=== PATIENT | female | born 1960 | race Caucasian/White ===

== ENCOUNTER 2021-12-05 02:35 | Inpatient (IN) ==
[~2021-12-05 02:35] MED LIST: HYDROmorphone 1 MG/1 ML SYRINGE ONE; KETOROLAC 30 MG/1 ML VIAL ONE; ONDANSETRON 4 MG/2 ML VIAL ONE; PANTOPRAZOLE 40 MG VIAL IV ONE; methylPREDNISolone SOD SUC 125 MG/2 ML VIAL ONE
[2021-12-05 03:32] LABS: Bilirubin,Total 0.5 MG/DL (0.20-1.00); Calcium 9.5 MG/DL (8.5-10.1); Osmolality,Calculated 275.7 MOS/KG (273-304); Potassium 3.4 MMOL/L (3.5-5.1); Total Protein 7.6 G/DL (6.4-8.2)
[2021-12-05] MEDS ORDERED: PIPERACILLIN/TAZOBACTAM 3,375 MG in SODIUM CHLORIDE 0.9% 100 ML IV STA (03:36)
[2021-12-05 03:45] LABS: Bilirubin,Urine Negative (Negative); Blood, Urine Trace mg/dL (Negative); Glucose,Urine (UA) Negative (Negative); Ketones,Urine Negative (Negative); Nitrite,Urine Positive (Negative); Protein,Urine Negative (Negative); RBC,Urine 2 /HPF (0-4); Squamous Epithelial Cell,Urine Occasional /HPF (0-10); Urine Appearance Clear (Clear); Urine Color Yellow (Yellow); Urine Urobilinogen 0.2 eU/dL (<2.0)
[2021-12-05 03:46] LABS: Hematocrit 47.6 VOL% (35.7-47.0); Hemoglobin 15.1 GM/DL (12.0-16.0); Mean Corpuscular HGB Conc 31.7 GM/DL (32-36); Mean Corpuscular Volume 89.1 FL (87-102); Mucus,Urine Few /LPF (Occasional); Red Blood Count 5.34 MC/CUMM (3.8-5.5); Red Cell Distribution Width 13.2 % (9.3-17.3)
[2021-12-05 03:47] LABS: Basophils # 0.1 10*3/uL (0.0-0.2); Basophils % 0.6 % (0.0-0.8); Eosinophils # 0.2 10*3/uL (0.0-0.87); Eosinophils % 1.8 % (0.00-10.9); Immature Granulocytes % 0.3 %; Immature Granulocytes Absolute 0.03 #; Lymphocytes # 2.6 10*3/uL (1.4-4.0); Lymphocytes % 25.8 % (21.3-54.2); Monocytes # 0.7 10*3/uL (0.11-0.8); Platelet Count 214 T/CUMM (130-400)
[2021-12-05] MEDS: SODIUM CHLORIDE 0.9% 1,000 ML IV SCH ×2 (03:54→14:06)
[2021-12-05] MEDS ORDERED: HYDROmorphone 1 MG/1 ML SYRINGE IV PRN ×2 (04:57→12:41)
[2021-12-05] MEDS ORDERED: ONDANSETRON 4 MG/2 ML VIAL IV PRN ×2 (04:57→12:41)
[2021-12-05] MEDS ORDERED: ALBUTEROL/IPRATROPIUM 3 ML NEB RESP TX PRN (04:58)
[2021-12-05] MEDS ORDERED: MAGNESIUM OXIDE 400 MG TABLET PO PRN (08:33)
[2021-12-05] MEDS: PANTOPRAZOLE 40 MG VIAL IV SCH (08:45)
[2021-12-05] MEDS: PANTOPRAZOLE 40 MG TABLET PO SCH (08:46)
[2021-12-05 09:11] LABS: Basophils % 0.3 % (0.0-0.8); Eosinophils % 0.1 % (0.00-10.9); Hematocrit 44.8 VOL% (35.7-47.0); Hemoglobin 14.3 GM/DL (12.0-16.0); Immature Granulocytes % 0.4 %; Immature Granulocytes Absolute 0.04 #; Lymphocytes # 0.9 10*3/uL (1.4-4.0); Lymphocytes % 9.2 % (21.3-54.2); Mean Corpuscular HGB Conc 31.9 GM/DL (32-36); Mean Platelet Volume 10.7 FL (9.6-12.0); Monocytes # 0.1 10*3/uL (0.11-0.8); Monocytes % 0.9 % (1.7-12.7); Neutrophils % 89.1 % (38.7-73.9); Platelet Count 207 T/CUMM (130-400); Red Blood Count 5.09 MC/CUMM (3.8-5.5); Red Cell Distribution Width 13.1 % (9.3-17.3); White Blood Count 9.7 T/CUMM (4-12)
[2021-12-05] MEDS ORDERED: INDOCYANINE GREEN 25 MG VIAL IV ONE (09:30)
[2021-12-05 09:40] LABS: Albumin 3.6 G/DL (3.4-5.0); Bilirubin,Total 0.5 MG/DL (0.20-1.00); Calcium 9.2 MG/DL (8.5-10.1); Osmolality,Calculated 281.4 MOS/KG (273-304); Potassium 3.7 MMOL/L (3.5-5.1)
[2021-12-05] MEDS ORDERED: LIDOCAINE 2% 5 ML VIAL ONE (09:43)
[2021-12-05] MEDS ORDERED: MIDAZOLAM 2 MG/2 ML VIAL ONE (09:43)
[2021-12-05] MEDS ORDERED: ROCURONIUM 50 MG/5 ML VIAL IV ONE (09:43)
[2021-12-05] MEDS ORDERED: propofoL 200 MG/20 ML VIAL IV ONE (09:43)
[2021-12-05] MEDS ORDERED: fentaNYL 100 MCG/2 ML VIAL ONE (09:43)
[2021-12-05] MEDS ORDERED: ONDANSETRON 4 MG/2 ML VIAL ONE (09:43)
[2021-12-05] MEDS ORDERED: TISSUE ADHESIVE 1 EACH APPLICATOR TOP ONE ×2 (10:05→11:05)
[2021-12-05] MEDS ORDERED: PIPERACILLIN/TAZOBACTAM 3,375 MG in SODIUM CHLORIDE 0.9% 100 ML IV SCH (11:00)
[2021-12-05] MEDS ORDERED: LIDOCAINE 1%/EPI INJ 20 ML VIAL ONE (11:05)
[2021-12-05] MEDS ORDERED: BUPIVACAINE MPF 0.25% 30 ML VIAL ONE (11:05)
[2021-12-05] MEDS ORDERED: PHENYLEPHRINE 1 MG/10 ML SYRINGE IV ONE (11:33)
[2021-12-05] MEDS ORDERED: SEVOFLURANE 1 UNIT/15 MINUTE INH ONE ×2 (11:33→12:29)
[2021-12-05] MEDS ORDERED: GLYCOPYRROLATE 0.4 MG/2 ML VIAL ONE (11:55)
[2021-12-05] MEDS ORDERED: NEOSTIGMINE 10 MG/10 ML VIAL ONE (11:55)
[2021-12-05] MEDS ORDERED: LACTATED RINGERS 1,000 ML IV ONE (11:55)
[2021-12-05] MEDS ORDERED: KETOROLAC 30 MG/1 ML VIAL IV ONE (13:06)
[2021-12-05] MEDS ORDERED: KETOROLAC 30 MG/1 ML VIAL ONE (13:06)
[2021-12-05] MEDS ORDERED: KETOROLAC 15 MG/1 ML VIAL IV SCH (13:48)
[2021-12-05 14:16] LABS: Basophils % 0.2 % (0.0-0.8); Hematocrit 43.1 VOL% (35.7-47.0); Hemoglobin 13.7 GM/DL (12.0-16.0); Immature Granulocytes % 0.6 %; Immature Granulocytes Absolute 0.06 #; Lymphocytes # 0.9 10*3/uL (1.4-4.0); Lymphocytes % 9.5 % (21.3-54.2); Mean Corpuscular HGB Conc 31.8 GM/DL (32-36); Mean Corpuscular Volume 89.4 FL (87-102); Mean Platelet Volume 10.2 FL (9.6-12.0); Monocytes # 0.2 10*3/uL (0.11-0.8); Monocytes % 1.8 % (1.7-12.7); Neutrophils % 87.9 % (38.7-73.9); Platelet Count 200 T/CUMM (130-400); Red Blood Count 4.82 MC/CUMM (3.8-5.5); Red Cell Distribution Width 13.2 % (9.3-17.3); White Blood Count 9.6 T/CUMM (4-12)
[2021-12-05 14:40] LABS: Albumin 3.2 G/DL (3.4-5.0); Bilirubin,Total 0.5 MG/DL (0.20-1.00); Calcium 8.6 MG/DL (8.5-10.1); Osmolality,Calculated 280.5 MOS/KG (273-304); Potassium 3.9 MMOL/L (3.5-5.1); Total Protein 6.6 G/DL (6.4-8.2)
[2021-12-05] MEDS ORDERED: NEBIVOLOL 10 MG TABLET PO SCH (21:00)
[2021-12-05] MEDS: KETOROLAC 10 MG TABLET PO SCH (23:34)
[2021-12-06 05:26] LABS: Basophils % 0.3 % (0.0-0.8); Eosinophils # 0.1 10*3/uL (0.0-0.87); Eosinophils % 0.6 % (0.00-10.9); Hematocrit 38.7 VOL% (35.7-47.0); Hemoglobin 12.2 GM/DL (12.0-16.0); Immature Granulocytes % 0.4 %; Immature Granulocytes Absolute 0.05 #; Lymphocytes # 2.7 10*3/uL (1.4-4.0); Lymphocytes % 23.8 % (21.3-54.2); Mean Corpuscular HGB Conc 31.5 GM/DL (32-36); Mean Platelet Volume 10.4 FL (9.6-12.0); Monocytes # 0.6 10*3/uL (0.11-0.8); Monocytes % 5.5 % (1.7-12.7); Neutrophils % 69.4 % (38.7-73.9); Platelet Count 180 T/CUMM (130-400); Red Cell Distribution Width 13.4 % (9.3-17.3); White Blood Count 11.4 T/CUMM (4-12)
[2021-12-06 05:37] LABS: Calcium 8.6 MG/DL (8.5-10.1)
[2021-12-06] MEDS: KETOROLAC 10 MG TABLET PO SCH (05:42)
[2021-12-06 05:49] LABS: Osmolality,Calculated 285.8 MOS/KG (273-304); Potassium 4.2 MMOL/L (3.5-5.1)
[2021-12-06 05:54] LABS: Alanine Aminotransferase 38 U/L (13-56); Albumin 2.8 G/DL (3.4-5.0); Alkaline Phosphatase 78 U/L (45-117); Aspartate Amino Transferase 30 U/L (0-37); Bilirubin,Total < 0.39 MG/DL (0.20-1.00); Blood Urea Nitrogen 13 MG/DL (7-18); Calcium 8.5 MG/DL (8.5-10.1); Carbon Dioxide 27 MMOL/L (21-32); Chloride 113 MMOL/L (98-107); Estimated Glom Filtration Rate 109 ML/MIN; Glucose 102 MG/DL (74-106); Osmolality,Calculated 285.8 MOS/KG (273-304); Potassium 4.2 MMOL/L (3.5-5.1); Sodium 144 MMOL/L (136-145); Total Protein 5.9 G/DL (6.4-8.2)
[2021-12-06 09:07] VITALS: BP 130/73
[2021-12-06] MEDS: PANTOPRAZOLE 40 MG TABLET PO SCH (09:45)
[2021-12-06] MEDS: PANTOPRAZOLE 40 MG VIAL IV SCH (09:45)
== END 2021-12-06 09:43 | disposition home or self-care (01) | DRG 419 ==
LOC: N.ED 02:35 → N.TELEN 03:01 → INTOOBSV 03:01 → N.TELEN 04:19
PROVIDERS: ADMIT Surgery; ATTEND Surgery